=== PATIENT | female | born 1940 | race Caucasian/White ===

== ENCOUNTER → 2016-11-04 | Outpatient (CLI) | payer MEDICARE ==
[~2016-11-04] MED LIST: ALPR1TAB6 PO; CHOL500014 PO; CRAN475C2 PO; ECHI167T PO; ESTR1TAB15 PO; GLUC1TAB21 PO; LISI5TAB7 PO; LOVA20TA PO; NAPR500T3 PO; NIFE60TA13 PO; OLOP5DRO EACHEYE; PANT40TA3 PO; POTA20TA14 PO; TAMS-11 PO; UBID100C41 PO; VITA400C14 PO
== END | disposition home or self-care (01) ==
LOC: ROC 12:00
PROVIDERS: ATTEND Radiology Radiation Oncology
DX: C75.1 Malignant neoplasm of pituitary gland (principal)
CPT/HCPCS: G0463

== ENCOUNTER → 2017-06-17 | Outpatient (CLI) | payer MEDICARE ==
[~2017-06-17] MED LIST changes: -CHOL500014 PO; +CHOL500045 PO; +GADOBUTROL 10 MMOL/10 ML VIAL ONE; -NAPR500T3 PO; +NAPR500T4 PO
== END ==
LOC: CFH 12:38
PROVIDERS: ATTEND Radiology Radiation Oncology
DX: D35.2 Benign neoplasm of pituitary gland (principal); I10 Essential (primary) hypertension
CPT/HCPCS: 70553; A9585

== ENCOUNTER → 2017-07-01 | Outpatient (CLI) | payer MEDICARE ==
[~2017-07-01] MED LIST changes: -GADOBUTROL 10 MMOL/10 ML VIAL ONE
== END ==
LOC: ROC 10:57
PROVIDERS: ATTEND Radiology Radiation Oncology
DX: Z08 Encounter for follow-up examination after completed treatment for malignant neoplasm (principal); D35.2 Benign neoplasm of pituitary gland; Z88.5 Allergy status to narcotic agent
CPT/HCPCS: G0463

== ENCOUNTER 2021-01-16 08:39 | Outpatient (CLI) | payer MEDICARE, OTHER ==
[~2021-01-16 08:39] MED LIST changes: +ALPR-585 PO; -ALPR1TAB6 PO; +NAPR-685 PO; -NAPR500T4 PO
== END 2021-01-16 23:59 | disposition home or self-care (01) ==
LOC: ROC 08:39
PROVIDERS: ATTEND Radiology Radiation Oncology
DX: Z08 Encounter for follow-up examination after completed treatment for malignant neoplasm (principal); D35.2 Benign neoplasm of pituitary gland
CPT/HCPCS: G0463